=== PATIENT | female | born 1980 | race Caucasian/White ===

== ENCOUNTER 2020-10-16 18:39 | Emergency (ER) | payer BC ==
[2020-10-16] MEDS ORDERED: Sodium Chloride 0.9% 10 ML Syringe FLUSH PRN (19:03)
[2020-10-16] MEDS ORDERED: Ondansetron 4 MG/2 ML SDV IVPUSH ONE (19:03)
[2020-10-16] MEDS ORDERED: HYDROmorphone 1 MG/ML Syringe IVPUSH ONE ×2 (19:05→20:38)
[2020-10-16] MEDS ORDERED: Sodium Chloride 0.9% 1,000 ML IV SCH (19:15)
--- NOTE | 2020-10-16 19:20 | EDM.PDOC ---
ED HPI GENERAL MEDICAL PROBLEM - General Chief Complaint: Abdominal Pain Stated Complaint: GALBLATER ISSUE Time Seen by Provider: 10/16/20 18:58 Source of Information: Reports: Patient History Limitations: Reports: No Limitations - History of Present Illness INITIAL COMMENTS - FREE TEXT/NARRATIVE: The patient presents with abdominal pain, nausea and vomiting. She has not felt well for about 3 days. The pain and nausea and vomiting has gotten worse with her vomiting about 30 times today. She has no fever but she does have chills. She has no chest pain or shortness of breath. She has no dysuria, hematuria or diarrhea. She says in the past she was told she had a bad gallbladder and should have it out, but it has not been a problem. She has a history of asthma. She still has her appendix and gallbladder. Upper Abdomen Pain Score (Numeric/FACES): 10 - Related Data Allergies Allergy/AdvReac Type Severity Reaction Status Date / Time morphine Allergy Vomiting Verified 10/16/20 18:45 Home Meds: Home Meds ALPRAZolam [Alprazolam ER] 1 mg PO 10/16/20 [History] Sertraline [Zoloft] 200 mg PO DAILY 10/16/20 [History] lisinopriL [Zestril] 10 mg PO DAILY 10/16/20 [History] Past Medical History - Past Health History Medical/Surgical History: Denies Medical/Surgical History HEENT History: Reports: None Cardiovascular History: Reports: Hypertension Respiratory History: Reports: Asthma Gastrointestinal History: Reports: Cholelithiasis, GERD Genitourinary History: Reports: None [employer]TING [employer] History: Reports: Neurological History: Reports: Concussion Psychiatric History: Reports: Depression Endocrine/Metabolic History: Reports: None Hematologic History: Reports: None Immunologic History: Reports: None Oncologic (Cancer) History: Reports: None Dermatologic History: Reports: None - Infectious Disease History Infectious Disease History: Reports: Chicken Pox - Past Surgical History Head Surgeries/Procedures: Reports: None HEENT Surgical History: Reports: Oral Surgery Female Surgical History: Reports: D&C Social & Family History - Family History Family Medical History: No Pertinent Family History Oncologic: Reports: Leukemia - Tobacco Use Tobacco Use Status *Q: Former Tobacco User Used Tobacco, but Quit: Yes Month/Year Tobacco Last Used: 04/2014 - Caffeine Use Caffeine Use: Reports: Coffee, Energy Drinks, Soda, Tea - Recreational Drug Use Recreational Drug Use: No ED ROS GENERAL - Review of Systems Review Of Systems: See Below Constitutional: Reports: No Symptoms HEENT: Reports: No Symptoms Respiratory: Reports: No Symptoms Cardiovascular: Reports: No Symptoms Endocrine: Reports: No Symptoms GI/Abdominal: Reports: Abdominal Pain, Nausea, Vomiting. Denies: Diarrhea : Reports: No Symptoms Musculoskeletal: Reports: No Symptoms ED EXAM, GI/ABD - Physical Exam Exam: See Below Exam Limited By: No Limitations General Appearance: Alert, No Apparent Distress Ears: Normal External Exam Nose: Normal Inspection Head: Atraumatic, Normocephalic Neck: Normal Inspection Respiratory/Chest: No Respiratory Distress, Lungs Clear, Normal Breath Sounds Cardiovascular: Regular Rate, Rhythm, No Edema, No Murmur GI/Abdominal Exam: Soft, No Organomegaly, No Mass, Tender (Moderate tenderness to the upper abdomen) Back Exam: Normal Inspection Extremities: Normal Inspection Course - Vital Signs Last Recorded V/S: Last Vital Signs Temp 97.3 F 10/16/20 18:49 Pulse 71 10/16/20 18:49 Resp 16 10/16/20 18:49 BP 112/63 10/16/20 18:49 Pulse Ox 100 10/16/20 18:49 - Orders/Labs/Meds Orders: Active Orders 24 hr Category Date Time Status Cardiac Monitoring [RC] . DIRECTED Care 10/16/20 19:03 Active Peripheral IV Care [RC] . DIRECTED Care 10/16/20 19:03 Active UA W/MICROSCOPIC [URIN] Stat Lab 10/16/20 19:03 Stop Req Sodium Chloride 0.9% [Normal Saline] 1,000 ml Med 10/16/20 19:15 Active IV .BOLUS Sodium Chloride 0.9% [Saline Flush] Med 10/16/20 20:00 Active 10 ml FLUSH ASDIRECTED Sodium Chloride 0.9% [Saline Flush] Med 10/16/20 19:03 Active 10 ml FLUSH ASDIRECTED PRN ED Antiemetic Medication Reflex [OM.PC] Stat Oth 10/16/20 19:03 Ordered Peripheral IV Insertion Adult [OM.PC] Stat Oth 10/16/20 19:03 Ordered Medication Orders Sodium Chloride (Normal Saline) 1,000 mls @ 1,000 mls/hr IV .BOLUS NIGEL Last Admin: 10/16/20 19:18 Dose: 1,000 mls/hr Documented by: RJ Sodium Chloride (Sodium Chloride 0.9% 10 Ml Syringe) 10 ml FLUSH ASDIRECTED PRN PRN Reason: Keep Vein Open Last Admin: 10/16/20 19:18 Dose: 10 ml Documented by: RJ Sodium Chloride (Sodium Chloride 0.9% 10 Ml Syringe) 10 ml FLUSH ASDIRECTED [facility] Last Admin: 10/16/20 21:13 Dose: 10 ml Documented by: MICHELLE Labs: Laboratory Tests 10/16/20 10/16/20 10/16/20 Range/Units 19:05 19:05 19:05 WBC 7.50 (3.98-10.04) K/mm3 RBC 4.37 (3.98-5.22) M/mm3 Hgb 13.7 (11.2-15.7) gm/dl Hct 41.2 (34.1-44.9) % MCV 94.3 D (79.4-94.8) fl MCH 31.4 (25.6-32.2) pg MCHC 33.3 (32.2-35.5) g/dl RDW Std Deviation 52.4 H (36.4-46.3) fL Plt Count 170 L (182-369) K/mm3 MPV 8.2 L (9.4-12.3) fl Neut % (Auto) 82.9 H (34.0-71.1) % Lymph % (Auto) 8.3 L (19.3-51.7) % [place] % (Auto) 8.4 (4.7-12.5) % Eos % (Auto) 0.1 L (0.7-5.8) Baso % (Auto) 0.0 L (0.1-1.2) % Neut # (Auto) 6.22 H (1.56-6.13) K/mm3 Lymph # (Auto) 0.62 L (1.18-3.74) K/mm3 [place] # (Auto) 0.63 H (0.24-0.36) K/mm3 Eos # (Auto) 0.01 L (0.04-0.36) K/mm3 Baso # (Auto) 0.00 L (0.01-0.08) K/mm3 Manual Slide Review Abnormal smear Sodium 129 L (136-145) mEq/L Potassium 4.0 (3.5-5.1) mEq/L Chloride 89 L (98-107) mEq/L Carbon Dioxide 14 L D (21-32) mEq/L Anion Gap 30.0 H (5-15) BUN 10 (7-18) mg/dL Creatinine 0.9 (0.55-1.02) mg/dL Est Cr Clr Drug Dosing 77.01 mL/min Estimated GFR (MDRD) > 60 (>60) mL/min BUN/Creatinine Ratio 11.1 L (14-18) Glucose 96 (70-99) mg/dL Calcium 8.7 D (8.5-10.1) mg/dL Total Bilirubin 1.0 (0.2-1.0) mg/dL AST 342 H (15-37) U/L ALT 259 H (14-59) U/L Alkaline Phosphatase 128 H (46-116) U/L Total Protein 7.7 (6.4-8.2) g/dl Albumin 4.1 (3.4-5.0) g/dl Globulin 3.6 gm/dL Albumin/Globulin Ratio 1.1 (1-2) Lipase 10857 H (73-393) U/L HCG, Qual Negative (NEGATIVE) Ethyl Alcohol (0.00) gm% 10/16/20 Range/Units 19:08 WBC (3.98-10.04) K/mm3 RBC (3.98-5.22) M/mm3 Hgb (11.2-15.7) gm/dl Hct (34.1-44.9) % MCV (79.4-94.8) fl MCH (25.6-32.2) pg MCHC (32.2-35.5) g/dl RDW Std Deviation (36.4-46.3) fL Plt Count (182-369) K/mm3 MPV (9.4-12.3) fl Neut % (Auto) (34.0-71.1) % Lymph % (Auto) (19.3-51.7) % [place] % (Auto) (4.7-12.5) % Eos % (Auto) (0.7-5.8) Baso % (Auto) (0.1-1.2) % Neut # (Auto) (1.56-6.13) K/mm3 Lymph # (Auto) (1.18-3.74) K/mm3 [place] # (Auto) (0.24-0.36) K/mm3 Eos # (Auto) (0.04-0.36) K/mm3 Baso # (Auto) (0.01-0.08) K/mm3 Manual Slide Review Sodium (136-145) mEq/L Potassium (3.5-5.1) mEq/L Chloride (98-107) mEq/L Carbon Dioxide (21-32) mEq/L Anion Gap (5-15) BUN (7-18) mg/dL Creatinine (0.55-1.02) mg/dL Est Cr Clr Drug Dosing mL/min Estimated GFR (MDRD) (>60) mL/min BUN/Creatinine Ratio (14-18) Glucose (70-99) mg/dL Calcium (8.5-10.1) mg/dL Total Bilirubin (0.2-1.0) mg/dL AST (15-37) U/L ALT (14-59) U/L Alkaline Phosphatase (46-116) U/L Total Protein (6.4-8.2) g/dl Albumin (3.4-5.0) g/dl Globulin gm/dL Albumin/Globulin Ratio (1-2) Lipase (73-393) U/L HCG, Qual (NEGATIVE) Ethyl Alcohol 0.11 (0.00) gm% Meds: Medications Generic Name Dose Route Start Last Admin Trade Name Freq PRN Reason Stop Dose Admin Sodium Chloride 1,000 mls @ 1,000 mls/hr 10/16/20 19:15 10/16/20 19:18 Normal Saline IV 1,000 mls/hr .BOLUS NIGEL Administration Sodium Chloride 10 ml 10/16/20 19:03 10/16/20 19:18 Sodium Chloride 0.9% 10 Ml Syringe FLUSH 10 ml ASDIRECTED PRN Administration Keep Vein Open Sodium Chloride 10 ml 10/16/20 20:00 10/16/20 21:13 Sodium Chloride 0.9% 10 Ml Syringe FLUSH 10 ml ASDIRECTED NIGEL Administration Discontinued Medications Generic Name Dose Route Start Last Admin Trade Name Freq PRN Reason Stop Dose Admin Hydromorphone HCl 1 mg 10/16/20 19:05 10/16/20 19:18 Hydromorphone 1 Mg/Ml Syringe IVPUSH 10/16/20 19:06 1 mg ONETIME ONE Administration Hydromorphone HCl 1 mg 10/16/20 20:38 10/16/20 20:44 Hydromorphone 1 Mg/Ml Syringe IVPUSH 10/16/20 20:39 1 mg ONETIME ONE Administration Sodium Chloride 1,000 mls @ 1,000 mls/hr 10/16/20 20:40 10/16/20 20:44 Normal Saline IV 10/16/20 21:39 1,000 mls/hr ONETIME ONE Administration Iopamidol 100 ml 10/16/20 20:00 10/16/20 20:44 Iopamidol 612 Mg/Ml 100 Ml Bottle IVPUSH 10/16/20 20:01 100 ml ONETIME ONE Administration Ondansetron HCl 4 mg 10/16/20 19:03 10/16/20 19:18 Ondansetron 4 Mg/2 Ml Sdv IVPUSH 10/16/20 19:04 4 mg ONETIME ONE Administration - Re-Assessments/Exams Free Text/Narrative Re-Assessment/Exam: 10/16/20 19:20 I ordered an IV NS 1L bolus, zofran 4mg IV, dilaudid 1mg IV, labs, UA and a CT of her abdomen and pelvis with IV contrast. I do not think she will tolerate the oral contrast. 10/16/20 21:20 Her platelets were low at 170. Her Na was low at 129. Her CO2 was low at 14. Her anion gap is elevated at 30. Her AST is elevated at 342. Her ALT is elevated at 259. Her alk phos is elevated at 128. Her lipase is very elevated at 10,918. Her HCG is negative. Her ETOH is 0.11. Her CT shows findings compatible with fairly prominent pancreatitis. Prominent fatty infiltration within the liver. Other findings believed to be incidental. She admits to drinking heavily lately. I feel she needs to be admitted. She does not agree. She is thinking it over. 10/16/20 21:44 She does not want to stay. I will give her some zofran. Departure - Departure Time of Disposition: 21:45 Disposition: Home, Self-Care 01 Condition: Good Clinical Impression: Pancreatitis Qualifiers: Chronicity: acute Pancreatitis type: alcohol induced Acute pancreatitis complication: no infection or necrosis Qualified Code(s): K85.20 - Alcohol induced acute pancreatitis without necrosis or infection Alcohol intoxication Qualifiers: Complication of substance-induced condition: uncomplicated Qualified Code(s): F10.920 - Alcohol use, unspecified with intoxication, uncomplicated - Discharge Information *PRESCRIPTION DRUG MONITORING PROGRAM REVIEWED*: Not Applicable *COPY OF PRESCRIPTION DRUG MONITORING REPORT IN PATIENT DENY: Not Applicable Referrals: Kathrin Cohen GLASS HANDLER [Primary Care Provider] - 1 Day Forms: ED Department Discharge Additional Instructions: Drink plenty of fluids. Try water, pedialyte, powerade or gatorade. Take the zofran every 6 hours as needed for nausea and vomiting. Take the hydrocodone as needed for pain. Please return if you are worse. Drink fluids for a day or two and advance your diet as tolerated after that. Pancreatitis is very serious and you could from it. Please return if you are worse. Sepsis Event Note (ED) - Evaluation Sepsis Screening Result: No Definite Risk - Focused Exam Vital Signs: Vital Signs Temp Pulse Resp BP Pulse Ox 10/16/20 18:49 97.3 F 71 16 112/63 100 - My Orders Last 24 Hours: My Active Orders 10/16/20 19:03 Cardiac Monitoring [RC] . DIRECTED Peripheral IV Care [RC] . DIRECTED UA W/MICROSCOPIC [URIN] Stat Sodium Chloride 0.9% [Saline Flush] 10 ml FLUSH ASDIRECTED PRN ED Antiemetic Medication Reflex [OM.PC] Stat Peripheral IV Insertion Adult [OM.PC] Stat 10/16/20 19:15 Sodium Chloride 0.9% [Normal Saline] 1,000 ml IV .BOLUS 10/16/20 20:00 Sodium Chloride 0.9% [Saline Flush] 10 ml FLUSH ASDIRECTED - Assessment/Plan Last 24 Hours: My Active Orders 10/16/20 19:03 Cardiac Monitoring [RC] . DIRECTED Peripheral IV Care [RC] . DIRECTED UA W/MICROSCOPIC [URIN] Stat Sodium Chloride 0.9% [Saline Flush] 10 ml FLUSH ASDIRECTED PRN ED Antiemetic Medication Reflex [OM.PC] Stat Peripheral IV Insertion Adult [OM.PC] Stat 10/16/20 19:15 Sodium Chloride 0.9% [Normal Saline] 1,000 ml IV .BOLUS 06/24/21 20:00 Sodium Chloride 0.9% [Saline Flush] 10 ml FLUSH ASDIRECTED
[2020-10-16] MEDS ORDERED: Iopamidol 612 MG/ML 100 ML Bottle IVPUSH ONE (20:00)
[2020-10-16] MEDS ORDERED: Sodium Chloride 0.9% 10 ML Syringe FLUSH SCH (20:00)
--- NOTE | 2020-10-16 20:39 | CT ---
CT abdomen and pelvis Technique: Multiple axial sections were obtained from above the dome of the diaphragm inferiorly through the pubic symphysis. Intravenous contrast was utilized. No oral contrast has been given. Delayed images were also obtained through the bladder. Reconstructed coronal and sagittal images were obtained. Comparison: Prior abdominal ultrasound of 07/09/19, no prior CT abdomen or pelvis study is available. Findings: Visualized lung bases showed nothing acute. Partially visualized bilateral breast prostheses are noted. Severe fatty infiltration is seen within the liver. Gallbladder contains no calcified gallstones. Spleen size is normal. Adrenal glands show no nodule. Kidneys show symmetric contrast enhancement without hydronephrosis or mass. Diffuse inflammatory change is seen around the pancreas which is felt compatible with pancreatitis. There is inflammatory change extending into a small portion of the right paracolic gutter. Appendix is seen which is normal in size. No pelvic mass or adenopathy is seen. IUD is noted within the uterus. No other inflammatory change or free fluid is seen. Delayed images show contrast within the distal ureters and within the bladder. Bone window settings were reviewed which appear within normal limits for the patient's age. Impression: 1. Findings compatible with fairly prominent pancreatitis. 2. Prominent fatty infiltration within the liver. 3. Other findings believed to be incidental as noted above. Diagnostic code #3
[2020-10-16] MEDS ORDERED: Sodium Chloride 0.9% 1,000 ML IV ONE (20:40)
== END 2020-10-16 22:01 | disposition home or self-care (01) ==
LOC: JD.ED 18:39
DX: K85.20 Alcohol induced acute pancreatitis without necrosis or infection (principal); F10.129 Alcohol abuse with intoxication, unspecified; Y90.5 Blood alcohol level of 100-119 mg/100 ml; I10 Essential (primary) hypertension; Z88.6 Allergy status to analgesic agent
CPT/HCPCS: 36415; 74177; 80053; 80307; 83690; 84703; 85025; 96374; 96375; 96376; 99284; J1170; J2405; J7030; Q9967

== ENCOUNTER 2022-09-28 13:34 | Emergency (ER) | payer SELFPAY ==
[2022-09-28] MEDS ORDERED: Ondansetron 4 MG/2 ML SDV IVPUSH ONE (14:17)
[2022-09-28] MEDS ORDERED: Sodium Chloride 0.9% 1,000 ML IV ONE ×2 (14:17→16:25)
[2022-09-28] MEDS ORDERED: Sodium Chloride 0.9% 10 ML Syringe FLUSH PRN ×2 (14:17→15:15)
[2022-09-28 14:40] LABS: BASOPHILS ABSOLUTE AUTO 0.02 K/mm3 (0.01-0.08); BASOPHILS PERCENT AUTO 0.1 % (0.1-1.2); EOSINOPHILS ABSOLUTE AUTO 0.01 K/mm3 (0.04-0.36); EOSINOPHILS PERCENT AUTO 0.1 (0.7-5.8); HEMATOCRIT 40.4 % (34.1-44.9); HEMOGLOBIN 13.3 gm/dl (11.2-15.7); IMMATURE GRAN ABSOLUTE AUTO 0.14 K/mm3 (0.00-0.10); IMMATURE GRAN PERCENT AUTO 0.7 % (<=1.0); LYMPHOCYTES ABSOLUTE AUTO 1.06 K/mm3 (1.18-3.74); LYMPHOCYTES PERCENT AUTO 5.6 % (19.3-51.7); MEAN CORPUSCULAR HEMOGLOBIN 34.9 pg (25.6-32.2); MEAN CORPUSCULAR HGB CONC 32.9 g/dl (32.2-35.5); MEAN PLATELET VOLUME 8.2 fl (9.4-12.3); MONOCYTES ABSOLUTE AUTO 0.64 K/mm3 (0.24-0.36); MONOCYTES PERCENT AUTO 3.4 % (4.7-12.5); NEUTROPHILS ABSOLUTE AUTO 17.15 K/mm3 (1.56-6.13); NEUTROPHILS PERCENT AUTO 90.1 % (34.0-71.1); PLATELET COUNT,PLT 240 K/mm3 (182-369); RED BLOOD CELL COUNT 3.81 M/mm3 (3.98-5.22); WHITE BLOOD CELL COUNT,WBC 19.02 K/mm3 (3.98-10.04)
[2022-09-28 15:01] LABS: A/G RATIO 0.5 (1-2); ALANINE AMINOTRANSFERASE,ALT 325 U/L (14-59); ALBUMIN 2.1 g/dl (3.4-5.0); ALKALINE PHOSPHATASE 689 U/L (46-116); ASPARTATE AMNIOTRANSFERASE,AST 886 U/L (15-37); BLOOD UREA NITROGEN,BUN 12 mg/dL (7-18); BUN/CREATININE RATIO 10.9 (14-18); CALCIUM 8.6 mg/dL (8.5-10.1); CARBON DIOXIDE,CO2 20 mEq/L (21-32); CHLORIDE,CL 91 mEq/L (98-107); ESTIMATED GFR 64 mL/min (>60); GLUCOSE RANDOM 85 mg/dL (70-99); LIPASE 206 U/L (73-393); SODIUM,NA 126 mEq/L (136-145)
[2022-09-28 15:03] LABS: CREATININE 1.1 mg/dL (0.55-1.02); PROTEIN TOTAL,TP 6.6 g/dl (6.4-8.2)
[2022-09-28 15:13] LABS: C-REACTIVE PROTEIN 17.5 mg/dL (<1.0)
[2022-09-28 15:15] LABS: SLIDE REVIEW ABNORMAL SMEAR
[2022-09-28] MEDS ORDERED: Iopamidol 612 MG/ML 100 ML Bottle IVPUSH ONE (15:15)
[2022-09-28] MEDS ORDERED: LORazepam 2 MG/ML SDV IVPUSH ONE (16:25)
[2022-09-28] MEDS ORDERED: cefTRIAXone 2 GM in Sodium Chloride 0.9% 100 ML IV ONE (16:45)
[2022-09-28] MEDS ORDERED: metroNIDAZOLE/Normal Saline 500 MG in Premix Bag 1 BAG IV ONE (16:46)
[2022-09-28 17:03] LABS: INR 1.45; PROTHROMBIN TIME 15.1 SECONDS (9.7-12.0)
[2022-09-28] MEDS ORDERED: LORazepam 2 MG/ML SDV IVPUSH SCH (18:30)
== END 2022-09-28 19:42 ==
LOC: JD.ED 13:34
DX: K70.31 Alcoholic cirrhosis of liver with ascites (principal); K72.00 Acute and subacute hepatic failure without coma; I10 Essential (primary) hypertension; J45.909 Unspecified asthma, uncomplicated; Z88.5 Allergy status to narcotic agent
CPT/HCPCS: 36415; 74177; 80053; 80307; 82140; 82977; 83690; 83735; 85025; 85610; 86140; 87040; 96361; 96365; 96366; 96368; 96375; 96376; 99285; J0696; J2060; J2405; J3490; J7030; Q9967